=== PATIENT | male | born 1935 | race Caucasian/White ===

== ENCOUNTER 2020-01-13 06:01 | Day surgery (SDC) | payer MEDICARE, OTHER ==
[~2020-01-13] VITALS: Ht 180.3 cm; Wt 90.0 kg
[~2020-01-13 06:01] MED LIST: ASPI81CH PO; Aspir 8181 MG PO; LANS30EC; LISI5 PO; METO50ER PO; REPATHA SU140 MG/1 M SC; ROSU10TA PO; TAMS.4ER PO; XARELTO15 MG PO; XARELTO20 MG PO; ZYRTEC10 M1 PO
--- NOTE | 2020-01-13 09:24 | NUR ---
MD AT BEDSIDE DISCUSSING RESULTS OF PROCEDURE. PT SITTING UP IN RECLINER EATING BREAKFAST. RRAD SITE WITH NO BLEEDING, OOZING OR HEMATOMA NOTED. PT DENIES ANY PAIN. IS ABLE TO SPEAK IN FULL SENTENCES AND RECALL INFORMATION. VSS. WILL CONTINUE TO MONITOR.
--- NOTE | 2020-01-13 10:48 | NUR ---
PT DENIES ANY NEEDS OR CONCERNS AT THIS TIME. PT SITTING IN RECLINER PLAYING SOLITAIR ON PHONE. PT DENIES PAIN. VSS. NO BLEEDING, OOZING OR HEMATOMA NOTED AT RRAD SITE. WILL CONTINUE TO MONITOR.
--- NOTE | 2020-01-13 11:56 | NUR ---
PT WITH SHORT RUN OF VT WAS NOT SYMPTOMATIC. RHYTHM STRIP PRINTED AND SHOWN TO DR. Christianson. NO FURTHER ORDERS. WILL CONTINUE TO MONITOR. VSS.
--- NOTE | 2020-01-13 12:15 | NUR ---
ATTEPTED TO REMOVE 2mL AIR FROM TR BAND. BLEEDING OCCURED. AIR REPLACED. WILL CONTINUE TO MONITOR. VSS
--- NOTE | 2020-01-13 13:12 | NUR ---
ATTEMPTED TO REMOVE 2mL MORE FROM TR BAND. BLEEDING OCCURED FROM SITE. AIR REPLACED VICKY INTO TR BAND. VSS. WILL CONTINUE TO MONITOR.
--- NOTE | 2020-01-13 13:39 | NUR ---
2mL AIR RELEASED FROM TR BAND. NO BLEEDING, OOZING OR HEMATOMA NOTED. VSS. PT DENIES PAIN. WILL CONTINUE TO MONITOR.
--- NOTE | 2020-01-13 13:50 | NUR ---
ALL AIR RELEASED FROM TR BAND. NO BLEEDING, OOZING OR HEMATOMA NOTED. VSS. PT DENIES ANY PAIN. WILL CONTINUE TO MONITOR.
--- NOTE | 2020-01-13 15:06 | NUR ---
DISCHARGE PT DRESSED SELF WITH NO COMPLICATIONS. TR BAND REMOVED WITH NO BLEEDING, OOZING OR HEAMTOMA NOTED. SITE CLEANED AND CLOTH DOT DRESSING APPLIED TO SITE. WHITE BOARD PLACED BACK ON ARM AND ARM PLACED IN SLING. PT STATES HIS UNDERSTANDING ON DISCHARGE AND SITE CARE INSTRUCTIONS AND DENIES ANY QUESTIONS OR CONCERNS. IV DCD WITH CATH INTACT. VSS. PT TAKEN BY WHEELCHAIR TO FRONT BY VOLUNTEER WHERE WAS WAITING WITH VEHICLE.
== END 2020-01-13 15:00 | disposition home or self-care (01) ==
LOC: MHTC 06:01
PROC: 4A023N7 Measurement of Cardiac Sampling and Pressure, Left Heart, Percutaneous Approach (ICD-10-PCS; principal; 2020-01-13)
PROC: B2111ZZ Fluoroscopy of Multiple Coronary Arteries using Low Osmolar Contrast (ICD-10-PCS; principal; 2020-01-13)
DX: I25.10 Atherosclerotic heart disease of native coronary artery without angina pectoris (principal); I77.810 Thoracic aortic ectasia; R00.1 Bradycardia, unspecified; Z95.5 Presence of coronary angioplasty implant and graft; I10 Essential (primary) hypertension; E78.5 Hyperlipidemia, unspecified; E11.9 Type 2 diabetes mellitus without complications; K21.9 Gastro-esophageal reflux disease without esophagitis; N40.0 Benign prostatic hyperplasia without lower urinary tract symptoms; Z86.711 Personal history of pulmonary embolism; Z79.01 Long term (current) use of anticoagulants; Z79.899 Other long term (current) drug therapy; Z79.82 Long term (current) use of aspirin
CPT/HCPCS: 37252; 85347; 92978; 93454; 99152; 99153; C1753; C1769; C1887; C1894; J1644; J2250; J3010; J7030; J7040; Q9967